=== PATIENT | male | born 1980 | race Caucasian/White ===

== ENCOUNTER 2018-03-31 17:12 | Emergency (ER) | payer MEDICAID ==
[~2018-03-31] VITALS: Ht 188 cm; Wt 114.9 kg
[2018-03-31 17:44] VITALS: BP 131/83
[2018-03-31] MEDS ORDERED: magnesium citrate 296ml oral solution PO ONE (19:05)
[2018-03-31] MEDS ORDERED: POLY17PO10 PO (19:29)
== END 2018-03-31 19:39 | disposition home or self-care (01) ==
LOC: ER 17:12
DX: K59.00 Constipation, unspecified (principal); F12.90 Cannabis use, unspecified, uncomplicated; Z88.1 Allergy status to other antibiotic agents; Z88.0 Allergy status to penicillin; Z88.6 Allergy status to analgesic agent; Z79.899 Other long term (current) drug therapy
CPT/HCPCS: 74018; 99283

== ENCOUNTER 2019-03-24 14:24 | Emergency (ER) | payer MEDICAID ==
[~2019-03-24] VITALS: Ht 188 cm; Wt 92.0 kg
[2019-03-24 15:12] LABS: BASOPHILS # (AUTO) 0.1 X10'3 (0-0.2); BASOPHILS % (AUTO) 1.1 % (0-1); EOSINOPHILS # (AUTO) 0.4 X10'3 (0-0.9); HEMATOCRIT 46.7 % (42.0-52.0); HEMOGLOBIN 15.7 g/dl (14.0-17.9); LYMPHOCYTES # (AUTO) 1.3 X10'3 (1.1-4.8); LYMPHOCYTES % (AUTO) 16.7 % (21-51); MEAN CORPUSCULAR HGB CONC 33.7 g/dL (33.0-36.5); MEAN CORPUSCULAR VOLUME 89.1 FL (78-98); MONOCYTES # (AUTO) 0.9 X10'3 (0-0.9); MONOCYTES % (AUTO) 12.3 % (2-12); NEUTROPHILS % (AUTO) 64.9 % (42-75); PLATELET COUNT 294 X10'3 (140-440); RED BLOOD COUNT 5.24 X10'6 (4.70-6.10); RED CELL DISTRIBUTION WIDTH 14.8 % (11.5-14.5); WHITE BLOOD COUNT 7.7 X10'3 (4.5-11.0)
[2019-03-24 15:17] LABS: ALANINE AMINOTRANSFERASE 16 U/L (12-78); ALBUMIN 3.5 G/DL (3.4-5.0); ALBUMIN/GLOBULIN RATIO 0.9 (1.1-1.5); ALKALINE PHOSPHATASE 53 IU/L (46-116); ANION GAP 6 (8-16); ASPARTATE AMINO TRANSFERASE 10 U/L (10-37); BILIRUBIN,TOTAL 0.3 MG/DL (0.1-1.0); BLOOD UREA NITROGEN 10 MG/DL (7-18); BUN/CREATININE RATIO 8.5 (5.4-32.0); CALCIUM 8.6 MG/DL (8.5-10.1); CHLORIDE 104 MMOL/L (99-107); CREATININE 1.18 MG/DL (0.60-1.10); GLUCOSE 85 MG/DL (70-104); POTASSIUM 4.3 MMOL/L (3.5-5.1); SODIUM 140 MMOL/L (135-145); TOTAL CARBON DIOXIDE 30.4 MMOL/L (24-32); TOTAL PROTEIN 7.2 G/DL (6.4-8.2); eGFR 69 ML/MIN
--- NOTE | 2019-03-24 15:20 | NUR ---
C/O STOMACH PAINS, FEVER, AND VOMITING LAST NIGHT AFTER EATING [employer]OD YESTERDAY ERICKA. VOMITING ALL DAY WITH DIARRHEA.
[2019-03-24] MEDS ORDERED: diphenhydrAMINE 50 mg/ml inj IV ONE (15:35)
[2019-03-24] MEDS ORDERED: dicyclomine 10 MG capsule PO ONE (15:35)
[2019-03-24] MEDS ORDERED: normal saline 1000ML IV soln IVB ONE (15:35)
[2019-03-24] MEDS ORDERED: proCHLORperazine 10 MG/2 ml inj IV ONE (15:35)
[2019-03-24] MEDS ORDERED: DICY10CA88 PO (16:18)
[2019-03-24 16:37] VITALS: BP 118/76
== END 2019-03-24 16:39 | disposition home or self-care (01) ==
LOC: ER 14:24
DX: R11.2 Nausea with vomiting, unspecified (principal); R19.7 Diarrhea, unspecified; R50.9 Fever, unspecified; F17.200 Nicotine dependence, unspecified, uncomplicated; F12.90 Cannabis use, unspecified, uncomplicated; Z88.0 Allergy status to penicillin; Z88.1 Allergy status to other antibiotic agents; Z88.8 Allergy status to other drugs, medicaments and biological substances; Z79.899 Other long term (current) drug therapy
CPT/HCPCS: 36415; 80053; 85025; 96361; 96374; 96375; 99283; J0780; J1200; J7030

== ENCOUNTER 2019-04-03 23:13 | Emergency (ER) | payer MEDICAID ==
[~2019-04-03] VITALS: Ht 188 cm; Wt 87.3 kg
[~2019-04-03 23:13] MED LIST: DICY10CA88 PO
[2019-04-03] MEDS ORDERED: HYDROcodone/acetaminophen 10/325mg tab PO ONE (23:45)
[2019-04-03] MEDS ORDERED: TRAM50TA2 PO (23:57)
[2019-04-04] MEDS ORDERED: traMADol 50MG tablet PO ONE
[2019-04-04 00:20] VITALS: BP 135/91
== END 2019-04-04 00:22 | disposition home or self-care (01) ==
LOC: ER 23:14
DX: S42.021A Displaced fracture of shaft of right clavicle, initial encounter for closed fracture (principal); S00.03XA Contusion of scalp, initial encounter; F12.90 Cannabis use, unspecified, uncomplicated; Z88.0 Allergy status to penicillin; Z88.1 Allergy status to other antibiotic agents; Z88.6 Allergy status to analgesic agent; V00.131A Fall from skateboard, initial encounter; Y93.51 Activity, roller skating (inline) and skateboarding; Y92.89 Other specified places as the place of occurrence of the external cause; Y99.9 Unspecified external cause status
CPT/HCPCS: 73000; 99284

== ENCOUNTER 2019-04-16 23:01 | Emergency (ER) | payer MEDICAID ==
[~2019-04-16] VITALS: Ht 188 cm; Wt 69.1 kg
[~2019-04-16 23:01] MED LIST changes: +TRAM50TA2 PO
[2019-04-16] MEDS ORDERED: acetaminophen 325mg tablet PO ONE (23:45)
[2019-04-16] MEDS ORDERED: ibuprofen tablet 400 MG TABLET PO ONE (23:45)
[2019-04-16] MEDS ORDERED: ibuprofen 200mg tablet PO ONE (23:50)
--- NOTE | 2019-04-17 00:50 | NUR ---
PATIENT STATES THAT IBUPROFEN AND TYLENOL DID NOT HELP PAIN, STATES " THAT IT IS OKAY"
[2019-04-17 01:03] VITALS: BP 145/95
== END 2019-04-17 01:04 | disposition home or self-care (01) ==
LOC: ER 23:01
DX: S42.001A Fracture of unspecified part of right clavicle, initial encounter for closed fracture (principal); F17.210 Nicotine dependence, cigarettes, uncomplicated; F12.90 Cannabis use, unspecified, uncomplicated; Z88.0 Allergy status to penicillin; Z88.1 Allergy status to other antibiotic agents; Z79.899 Other long term (current) drug therapy; W17.89XA Other fall from one level to another, initial encounter; Y93.89 Activity, other specified; Y92.828 Other wilderness area as the place of occurrence of the external cause; Y99.8 Other external cause status
CPT/HCPCS: 71045; 73000; 99283

== ENCOUNTER 2019-06-11 22:38 | Emergency (ER) | payer MEDICAID ==
[~2019-06-11 22:38] MED LIST changes: -TRAM50TA2 PO
== END 2019-06-11 23:35 | disposition left against medical advice (07) ==
LOC: ER 22:38
DX: S61.019A Laceration without foreign body of unspecified thumb without damage to nail, initial encounter (principal); Z53.21 Procedure and treatment not carried out due to patient leaving prior to being seen by health care provider; W45.8XXA Other foreign body or object entering through skin, initial encounter; Y93.89 Activity, other specified; Y92.89 Other specified places as the place of occurrence of the external cause; Y99.8 Other external cause status

== ENCOUNTER 2019-06-14 11:22 | Emergency (ER) | payer MEDICAID ==
[~2019-06-14] VITALS: Ht 188 cm; Wt 91.0 kg
[2019-06-14 11:37] VITALS: BP 151/94
== END 2019-06-14 12:29 | disposition left against medical advice (07) ==
LOC: ER 11:23
DX: L08.89 Other specified local infections of the skin and subcutaneous tissue (principal); Z53.21 Procedure and treatment not carried out due to patient leaving prior to being seen by health care provider

== ENCOUNTER 2020-01-17 22:12 | Emergency (ER) | payer MEDICAID ==
[~2020-01-17] VITALS: Ht 188 cm; Wt 106.8 kg
[2020-01-17 22:15] VITALS: BP 142/74
[2020-01-17] MEDS ORDERED: ibuprofen tablet 400 MG TABLET PO ONE (22:40)
[2020-01-17] MEDS ORDERED: acetaminophen 325mg tablet PO ONE (22:40)
== END 2020-01-17 23:08 | disposition home or self-care (01) ==
LOC: ER 22:13
DX: M25.512 Pain in left shoulder (principal); F12.90 Cannabis use, unspecified, uncomplicated; Z88.0 Allergy status to penicillin; Z88.1 Allergy status to other antibiotic agents; Z88.8 Allergy status to other drugs, medicaments and biological substances; Z79.899 Other long term (current) drug therapy; W18.39XA Other fall on same level, initial encounter; Y93.72 Activity, wrestling; Y92.89 Other specified places as the place of occurrence of the external cause; Y99.8 Other external cause status
CPT/HCPCS: 99281

== ENCOUNTER 2020-08-05 18:23 | Emergency (ER) | payer MEDICAID ==
[~2020-08-05] VITALS: Ht 188 cm; Wt 104.5 kg
[2020-08-05 18:34] VITALS: BP 130/75
== END 2020-08-05 20:11 | disposition left against medical advice (07) ==
LOC: ER 18:24
DX: R11.10 Vomiting, unspecified (principal); Z53.21 Procedure and treatment not carried out due to patient leaving prior to being seen by health care provider

== ENCOUNTER 2020-08-24 00:07 | Emergency (ER) | payer MEDICAID ==
[~2020-08-24] VITALS: Ht 188 cm; Wt 113.6 kg
[2020-08-24 00:39] VITALS: BP 124/90
== END 2020-08-24 02:59 | disposition left against medical advice (07) ==
LOC: ER 00:08
DX: M79.672 Pain in left foot (principal); M79.671 Pain in right foot; Z53.21 Procedure and treatment not carried out due to patient leaving prior to being seen by health care provider

== ENCOUNTER 2020-08-31 15:43 | Emergency (ER) | payer MEDICAID ==
[~2020-08-31] VITALS: Ht 188 cm; Wt 99.8 kg
[2020-08-31 16:18] LABS: BASOPHILS # (AUTO) 0.1 X10'3 (0-0.2); BASOPHILS % (AUTO) 1.5 % (0-1); EOSINOPHILS # (AUTO) 0.1 X10'3 (0-0.9); HEMATOCRIT 43.5 % (42.0-52.0); HEMOGLOBIN 15.1 g/dl (14.0-17.9); LYMPHOCYTES # (AUTO) 1.6 X10'3 (1.1-4.8); LYMPHOCYTES % (AUTO) 27.1 % (21-51); MEAN CORPUSCULAR HEMOGLOBIN 30.3 PG (27.0-31.0); MEAN CORPUSCULAR HGB CONC 34.6 g/dL (33.0-36.5); MEAN CORPUSCULAR VOLUME 87.6 FL (78-98); MEAN PLATELET VOLUME 7.5 FL (7.4-10.4); MONOCYTES # (AUTO) 1.1 X10'3 (0-0.9); MONOCYTES % (AUTO) 19.1 % (2-12); NEUTROPHILS % (AUTO) 50.3 % (42-75); PLATELET COUNT 390 X10'3 (140-440); RED BLOOD COUNT 4.96 X10'6 (4.70-6.10)
[2020-08-31 16:35] LABS: ALANINE AMINOTRANSFERASE 32 U/L (12-78); ALKALINE PHOSPHATASE 77 IU/L (46-116); ANION GAP 14 (8-16); ASPARTATE AMINO TRANSFERASE 32 U/L (10-37); BILIRUBIN,TOTAL 0.6 MG/DL (0.1-1.0); BLOOD UREA NITROGEN 15 MG/DL (7-18); BUN/CREATININE RATIO 14.3 (5.4-32.0); CALCIUM 8.7 MG/DL (8.5-10.1); CHLORIDE 98 MMOL/L (99-107); CREATININE 1.05 MG/DL (0.60-1.10); GLUCOSE 95 MG/DL (70-104); POTASSIUM 3.1 MMOL/L (3.5-5.1); SODIUM 137 MMOL/L (135-145); TOTAL CARBON DIOXIDE 24.6 MMOL/L (24-32); TOTAL PROTEIN 8.1 G/DL (6.4-8.2); eGFR 78 ML/MIN
--- NOTE | 2020-08-31 16:58 | NUR ---
Called to treatment area, not in lobby
--- NOTE | 2020-08-31 17:13 | NUR ---
Second call, not in lobby
[2020-08-31] MEDS ORDERED: potassium Cl 20 mEq SR tablet PO ONE (17:40)
[2020-08-31] MEDS ORDERED: diphenhydrAMINE 50 mg/ml inj IV ONE (18:05)
[2020-08-31] MEDS ORDERED: proCHLORperazine 10 MG/2 ml inj IV ONE (18:05)
[2020-08-31] MEDS ORDERED: ondansetron/PF 4mg/2ml inj IV ONE (18:05)
[2020-08-31] MEDS ORDERED: normal saline 1000ml 1,000 ML IV ONE (18:05)
[2020-08-31 18:28] LABS: CLARITY,URINE CLOUDY (Clear); COLOR,URINE YELLOW (Yellow); GLUCOSE, URINE NEGATIVE (Neg); KETONES,URINE 15 mg/dl (Neg); LEUKOCYTE ESTERASE ,URINE NEGATIVE (Neg); NITRITES, URINE NEGATIVE (Neg); OCCULT BLOOD,URINE TRACE-INTACT (Neg); PROTEIN,URINE 30 mg/dl (Neg)
[2020-08-31 18:30] LABS: UA COLLECTION TYPE VOIDED
[2020-08-31 18:37] LABS: WBC,URINE 0-4 /HPF (0-4)
[2020-08-31] MEDS ORDERED: ONDA4TAB6 PO (18:37)
[2020-08-31 18:38] LABS: BACTERIA,URINE NONE SEEN /HPF (Neg); MUCUS STRANDS MODERATE /LPF (Neg); RBC,URINE 0-2 /HPF (0-2); SQUAMOUS EPITHELIAL CELL,UR FEW /LPF (FEW)
--- NOTE | 2020-08-31 18:59 | NUR ---
Patient refused to let me start an IV in a spot I could get one, declined IV meds and was discharged.
[2020-08-31 19:01] VITALS: BP 117/59
== END 2020-08-31 19:04 | disposition home or self-care (01) ==
LOC: ER 15:43
DX: R11.2 Nausea with vomiting, unspecified (principal); E87.6 Hypokalemia; F12.90 Cannabis use, unspecified, uncomplicated; Z88.0 Allergy status to penicillin; Z88.1 Allergy status to other antibiotic agents; Z88.5 Allergy status to narcotic agent; Z79.899 Other long term (current) drug therapy
CPT/HCPCS: 36415; 80053; 81001; 85025; 99283

== ENCOUNTER 2020-11-09 04:02 | Emergency (ER) | payer MEDICAID ==
[~2020-11-09] VITALS: Ht 188 cm; Wt 97.7 kg
[~2020-11-09 04:02] MED LIST changes: +ONDA4TAB6 PO
[2020-11-09 04:06] VITALS: BP 128/84
[2020-11-09] MEDS ORDERED: ondansetron 4mg rapidly disintigrating tab PO ONE (04:35)
[2020-11-09] MEDS ORDERED: NALO4SPR BOTHNARES (04:50)
== END 2020-11-09 06:56 | disposition home or self-care (01) ==
LOC: ER 04:02
DX: T40.1X1A Poisoning by heroin, accidental (unintentional), initial encounter (principal); J41.0 Simple chronic bronchitis; R45.1 Restlessness and agitation; F17.200 Nicotine dependence, unspecified, uncomplicated; F12.90 Cannabis use, unspecified, uncomplicated; Z88.0 Allergy status to penicillin; Z88.1 Allergy status to other antibiotic agents; Z88.8 Allergy status to other drugs, medicaments and biological substances; Z79.899 Other long term (current) drug therapy; Y92.89 Other specified places as the place of occurrence of the external cause
CPT/HCPCS: 71045; 99283

== ENCOUNTER 2022-01-12 04:51 | Emergency (ER) | payer MEDICAID ==
[~2022-01-12] VITALS: Ht 188 cm; Wt 98.0 kg
[~2022-01-12 04:51] MED LIST changes: +NALO4SPR BOTHNARES
[2022-01-12] MEDS ORDERED: ketorolac trometh. 30mg/ml inj. IV ONE (05:15)
[2022-01-12] MEDS ORDERED: acetaminophen 325mg tablet PO ONE (05:15)
[2022-01-12] MEDS ORDERED: ondansetron/PF 4mg/2ml inj IV ONE (05:15)
[2022-01-12] MEDS ORDERED: ondansetron 4mg rapidly disintigrating tab PO ONE (05:20)
[2022-01-12] MEDS ORDERED: ketorolac trometh inj. 60 MG/2 ML VIAL IM ONE (05:20)
--- NOTE | 2022-01-12 05:36 | NUR ---
PT REPORTED TO DR GUTIERRES HIS ALLERGIC REACTION TO TORADOL IS HEADACHE. PT WAS EXPLAINED HEADACHE IS NOT AN ALLERGIC REACTION. PT STATES HE HAS NEVER HAD A REACTION TO IBUPROFEN OR ANY OTHER MEDS SIMILAR TO IT. DR GUTIERRES ORDERED THE TORADOL. PT ACCEPTED MEDICATION.
[2022-01-12 06:34] VITALS: BP 150/94
[2022-01-12] MEDS ORDERED: cyclobenzaprine 10mg tablet PO ONE (06:35)
[2022-01-12 06:39] LABS: BASOPHILS # (AUTO) 0.1 X10'3 (0-0.2); BASOPHILS % (AUTO) 1.3 % (0-1); EOSINOPHILS # (AUTO) 0.3 X10'3 (0-0.9); HEMATOCRIT 40.2 % (42.0-52.0); HEMOGLOBIN 13.6 g/dl (14.0-17.9); LYMPHOCYTES # (AUTO) 0.2 X10'3 (1.1-4.8); LYMPHOCYTES % (AUTO) 4.6 % (21-51); MEAN CORPUSCULAR VOLUME 88.3 FL (78-98); MEAN PLATELET VOLUME 8.4 FL (7.4-10.4); MONOCYTES % (AUTO) 22.1 % (2-12); NEUTROPHILS # (AUTO) 2.9 X10'3 (1.8-7.7); PLATELET COUNT 249 X10'3 (140-440); RED BLOOD COUNT 4.55 X10'6 (4.70-6.10); RED CELL DISTRIBUTION WIDTH 13.6 % (11.5-14.5); WHITE BLOOD COUNT 4.5 X10'3 (4.5-11.0)
[2022-01-12 06:49] LABS: ALANINE AMINOTRANSFERASE 35 U/L (12-78); ALBUMIN 3.5 G/DL (3.4-5.0); ALBUMIN/GLOBULIN RATIO 1.2 (1.1-1.5); ALKALINE PHOSPHATASE 53 IU/L (46-116); ANION GAP 12 (8-16); ASPARTATE AMINO TRANSFERASE 22 U/L (10-37); BILIRUBIN,TOTAL 0.4 MG/DL (0.1-1.0); BLOOD UREA NITROGEN 9 MG/DL (7-18); BUN/CREATININE RATIO 9.4 (5.4-32.0); CALCIUM 7.8 MG/DL (8.5-10.1); CHLORIDE 99 MMOL/L (99-107); CREATININE 0.96 MG/DL (0.60-1.10); GLUCOSE 96 MG/DL (70-104); LIPASE 57 U/L (73-393); POTASSIUM 3.3 MMOL/L (3.5-5.1); SODIUM 134 MMOL/L (135-145); TOTAL CARBON DIOXIDE 22.8 MMOL/L (24-32); TOTAL PROTEIN 6.4 G/DL (6.4-8.2); eGFR 86 ML/MIN
[2022-01-12 06:50] LABS: URINE AMPHETAMINE SCREEN NEGATIVE (Neg); URINE BARBITUATE SCREEN NEGATIVE (Neg); URINE BENZODIAZEPINES SCREEN NEGATIVE (Neg); URINE CANNABINOID SCREEN POSITIVE (Neg); URINE COCAINE SCREEN NEGATIVE (Neg); URINE METHADONE SCREEN NEGATIVE (Neg); URINE OPIATE SCREEN POSITIVE (Neg); URINE PHENCYCLIDINE SCREEN NEGATIVE (Neg)
[2022-01-12 06:53] LABS: CLARITY,URINE CLEAR (Clear); COLOR,URINE YELLOW (Yellow); GLUCOSE, URINE NEGATIVE (Neg); KETONES,URINE NEGATIVE (Neg); LEUKOCYTE ESTERASE ,URINE NEGATIVE (Neg); NITRITES, URINE NEGATIVE (Neg); OCCULT BLOOD,URINE NEGATIVE (Neg); PROTEIN,URINE NEGATIVE (Neg)
[2022-01-12 06:54] LABS: UA COLLECTION TYPE CLN CATCH MIDSTREAM
[2022-01-12 08:13] LABS: LARGE PLATELETS FEW; PLATELET ESTIMATE NORMAL; TOTAL CELLS COUNTED 100
== END 2022-01-12 07:45 | disposition home or self-care (01) ==
LOC: ER 04:52
DX: M54.50 Low back pain, unspecified (principal); F12.90 Cannabis use, unspecified, uncomplicated; Z88.0 Allergy status to penicillin; Z88.6 Allergy status to analgesic agent; Z91.041 Radiographic dye allergy status
CPT/HCPCS: 74176; 80053; 80305; 81003; 83690; 85007; 85025; 96372; 99284; J1885

== ENCOUNTER 2022-03-04 18:27 | Emergency (ER) | payer MEDICAID | END 2022-03-04 23:23 | disposition left against medical advice (07) | LOC: ER 18:28 | DX: Z00.8 Encounter for other general examination (principal); Z53.21 Procedure and treatment not carried out due to patient leaving prior to being seen by health care provider ==

== ENCOUNTER 2022-03-05 06:02 | Emergency (ER) | payer MEDICAID ==
[~2022-03-05] VITALS: Ht 188 cm; Wt 100.0 kg
[2022-03-05 06:05] VITALS: BP 141/93
== END 2022-03-05 07:34 | disposition left against medical advice (07) ==
LOC: ER 06:03
DX: F11.23 Opioid dependence with withdrawal (principal); Z53.21 Procedure and treatment not carried out due to patient leaving prior to being seen by health care provider

== ENCOUNTER 2023-01-16 04:44 | Emergency (ER) | payer MEDICAID ==
[~2023-01-16] VITALS: Ht 182.9 cm; Wt 131.4 kg
[~2023-01-16 04:44] MED LIST changes: -DICY10CA88 PO; +LORA10TA7 PO; +LURA80TA2 PO; +METO-395 PO; -NALO4SPR BOTHNARES; -ONDA4TAB6 PO
[2023-01-16 04:48] VITALS: BP 139/94; PULSE 93; RESP 16
[2023-01-16] MEDS ORDERED: SULF1TAB49 PO (07:34)
[2023-01-16] MEDS ORDERED: rifampin 300mg capsule PO ONE (07:35)
[2023-01-16] MEDS ORDERED: sulfamethoxazole/trimethoprim DS (800/160mg) tablet PO ONE (07:35)
[2023-01-16 08:08] VITALS: TEMP 99.3
== END 2023-01-16 08:10 | disposition home or self-care (01) ==
LOC: ER 04:44
DX: L03.316 Cellulitis of umbilicus (principal); F12.90 Cannabis use, unspecified, uncomplicated; Z87.81 Personal history of (healed) traumatic fracture; Z79.899 Other long term (current) drug therapy; Z88.0 Allergy status to penicillin; Z88.1 Allergy status to other antibiotic agents; Z88.5 Allergy status to narcotic agent
CPT/HCPCS: 99283

== ENCOUNTER 2023-09-04 10:12 | Emergency (ER) | payer MEDICAID ==
[~2023-09-04] VITALS: Ht 182.9 cm; Wt 96.0 kg
[2023-09-04 10:16] VITALS: BP 138/102; PULSE 80; RESP 18; TEMP 98.7; O2SAT 98
== END 2023-09-04 10:56 | disposition left against medical advice (07) ==
LOC: ER 10:13
DX: S00.83XA Contusion of other part of head, initial encounter (principal); F12.90 Cannabis use, unspecified, uncomplicated; Z88.0 Allergy status to penicillin; Z91.041 Radiographic dye allergy status; Z88.5 Allergy status to narcotic agent; Z88.6 Allergy status to analgesic agent; Z79.899 Other long term (current) drug therapy; W19.XXXA Unspecified fall, initial encounter; Y93.89 Activity, other specified; Y92.89 Other specified places as the place of occurrence of the external cause; Y99.8 Other external cause status
CPT/HCPCS: 99281